=== PATIENT | female | born 1970 ===

== ENCOUNTER 2017-02-07 18:50 | Emergency (ER) | payer MEDICAID ==
--- NOTE | 2017-02-07 19:09 | C.PDOC ---
History Of Present Illness The patient presents to the ED for evaluation of right leg and knee pain which began around 5-6 days ago. Patient reports her pain is exacerbated by movement. She is able to speak in complete sentences and denies fever, chills, shortness of breath, recent prolonged trips or trauma. Time Seen by Provider: 02/07/17 19:09 Chief Complaint (Nursing): Medical Clearance History Per: Patient History/Exam Limitations: no limitations Onset/Duration Of Symptoms: Days (5-6) Current Symptoms Are (Timing): Still Present Severity: Mild Pain Scale Rating Of: 3 Recent travel outside of the [place]: No Additional History Per: Patient Past Medical History Reviewed: Historical Data, Nursing Documentation, Vital Signs Vital Signs: Last Vital Signs Temp 97.5 F L 02/07/17 21:51 Pulse 71 02/07/17 21:51 Resp 20 02/07/17 21:51 BP 126/87 02/07/17 21:51 Pulse Ox 99 02/07/17 21:51 - Medical History PMH: No Chronic Diseases Surgical History: No Surg Hx Family History: States: Unknown Family Hx Review Of Systems Constitutional: Negative for: Fever, Chills Cardiovascular: Negative for: Chest Pain, Palpitations Respiratory: Negative for: Cough, Shortness of Breath Gastrointestinal: Negative for: Nausea, Vomiting, Abdominal Pain, Diarrhea Musculoskeletal: Positive for: Leg Pain (right), Other (right knee pain ) Skin: Negative for: Rash, Lesions, Jaundice, Bruising Neurological: Negative for: Weakness, Numbness Physical Exam - Physical Exam Appears: Non-toxic, No Acute Distress Skin: Warm, Dry Oral Mucosa: Moist Chest: Symmetrical, No Deformity, No Tenderness Cardiovascular: Rhythm Regular, No Murmur Respiratory: No Rales, No Rhonchi, No Wheezing, Other (speaking in complete sentences ) Gastrointestinal/Abdominal: No Soft, No Tenderness, No Distention Back: Normal Inspection Extremity: No Normal ROM (limited, secondary to pain with passive flexion and extension ), Tenderness (to right knee ), Capillary Refill (less than 2 seconds ) Extremity: Right: Painful To Bear Weight, Bilateral: Atraumatic, Normal Color And Temperature Pulses: Left Dorsalis Pedis: Normal, Right Dorsalis Pedis: Normal Neurological/Psych: Oriented x3, Normal Speech, Normal Cognition Gait: Steady ED Course And Treatment - Laboratory Results Result Diagrams: 02/07/17 19:44 02/07/17 19:44 O2 Sat by Pulse Oximetry: 99 (on RA) Pulse Ox Interpretation: Normal - CT Scan/US CT right knee Other Rad Studies (CT/US): Read By Radiologist, Radiology Report Reviewed CT/US Interpretation: EXAM: CT Right Lower Extremity Without Intravenous Contrast, Knee. CLINICAL HISTORY: 46 years old, female; Pain and signs and symptoms; Swelling or effusion of joint; Knee; Right;. Additional info: Knee pain, swelling. TECHNIQUE: Axial computed tomography images of the right knee without intravenous contrast. All CT scans at. this facility use one or more dose reduction techniques, viz.: automated exposure control; ma/kV. adjustment per patient size (including targeted exams where dose is matched to indication; i.e. head);. or iterative reconstruction technique. Coronal and sagittal reformatted images were created and reviewed. COMPARISON: No relevant prior studies available. FINDINGS: Bones/joints: No acute fracture. No definite cortical destruction. Early osteoarthrosis of medial and. patellofemoral compartments. No dislocation. Small joint effusion. Tiny intraarticular body. Soft tissues: Mild stranding within anterior subcutaneous tissues. IMPRESSION: 1. No fracture. 2. Small joint effusion, nonspecific. Clinical correlation is needed. 3. Incidental/non-acute findings are described above. Progress Note: Bloodwork, UA, CT Right Knee ordered. Lovenox SC administered. Reevaluation Time: 21:59 Reassessment Condition: Improved Disposition Counseled Patient/Family Regarding: Studies Performed, Diagnosis, Need For Followup, Rx Given - Disposition Referrals: Nanette Wilson MD [Staff Provider] - Disposition: HOME/ ROUTINE Disposition Time: 19:09 Condition: FAIR Prescriptions: Naproxen [Naprosyn] 1 tab PO BID PRN #25 tab PRN Reason: Pain Instructions: Swollen Knee Joint (ED), Knee Pain (ED) Forms: [employer] (French) - Clinical Impression Clinical Impression: Knee pain, right, Knee effusion, right - Scribe Statement The provider has reviewed the documentation as recorded by the Scribe (Alma Wilson) Provider Attestation: All medical record entries made by the Scribe were at my direction and personally dictated by me. I have reviewed the chart and agree that the record accurately reflects my personal performance of the history, physical exam, medical decision making, and the department course for this patient. I have also personally directed, reviewed, and agree with the discharge instructions and disposition.
[2017-02-07 19:10] VITALS: O2SAT 99
[2017-02-07] MEDS ORDERED: Enoxaparin 40 mg Syringe SC STA (19:24)
[2017-02-07] MEDS ORDERED: Enoxaparin 100 mg Syringe SC STA (19:43)
[2017-02-07 19:55] LABS: BASO # 0.2 K/uL (0.0-0.2); BASO % 1.8 % (0.0-2.0); EOS # 0.1 K/uL (0.0-0.7); EOS % 1.3 % (0.0-4.0); LYMPH # 2.8 K/uL (1.0-4.3); LYMPH % 30.9 % (20.0-40.0); MEAN CELL VOLUME 79.5 fL (81.0-99.0); MEAN CORPUSCULAR HEMOGLOBIN 25.6 pg (27.0-31.0); MEAN CORPUSCULAR HGB CONC 32.2 g/dL (33.0-37.0); MONO # 0.5 K/uL (0.0-0.8); MONO % 5.1 % (0.0-10.0); NRBC % 0.1 % (0.0-2.0); RED CELL DISTRIBUTION WIDTH 15.9 % (11.5-14.5); WHITE BLOOD COUNT 9.2 K/uL (4.8-10.8)
[2017-02-07] MEDS ORDERED: Enoxaparin 100 mg Syringe ONE (19:58)
[2017-02-07 20:00] LABS: VENOUS BLOOD GAS BASE EXCESS 0.8 mmol/L (0.0-2.0); VENOUS BLOOD GAS PCO2 46 mmHg (40-60); VENOUS BLOOD PH 7.37 (7.32-7.43)
[2017-02-07 20:06] LABS: INR 1.1; PARTIAL THROMBOPLASTIN TIME 30 SECONDS (21-34)
[2017-02-07 20:10] LABS: ALB/GLOB RATIO 1.3 (1.0-2.1); ALKALINE PHOSPHATASE 91 U/L (38-126); ALT/SGPT 53 U/L (9-52); AST/SGOT 35 U/L (14-36); BILIRUBIN,TOTAL 0.5 mg/dL (0.2-1.3); BLOOD UREA NITROGEN 11 mg/dL (7-17); CALCIUM 8.9 mg/dl (8.6-10.4); CARBON DIOXIDE 29 mmol/L (22-30); CHLORIDE 102 mmol/L (98-107); GFR AFRICAN-AMERICAN > 60; GLUCOSE,RANDOM 94 mg/dL (65-105); POTASSIUM 3.8 mmol/L (3.6-5.2); SODIUM 141 mmol/L (132-148); TOTAL PROTEIN 7.7 g/dL (6.3-8.3)
[2017-02-07 20:16] LABS: RBC URINE 1 /hpf (0-3); URINE BACTERIA RARE (<OCC); URINE BILIRUBIN NEGATIVE (NEGATIVE); URINE BLOOD NEGATIVE (NEGATIVE); URINE COLOR Colorless (YELLOW); URINE GLUCOSE (UA) NORMAL (Normal); URINE KETONE NEGATIVE (NEGATIVE); URINE PROTEIN NEGATIVE (NEGATIVE); URINE UROBILINOGEN NORMAL mg/dL (0.2-1.0); WBC URINE 14 /hpf (0-5)
[2017-02-07 20:20] LABS: URINE LEUKOCYTE ESTERASE 1+ Leu/uL (Negative)
--- NOTE | 2017-02-07 21:02 | CT ---
EXAM: CT Right Lower Extremity Without Intravenous Contrast, Knee CLINICAL HISTORY: 46 years old, female; Pain and signs and symptoms; Swelling or effusion of joint; Knee; Right; Additional info: Knee pain, swelling TECHNIQUE: Axial computed tomography images of the right knee without intravenous contrast. All CT scans at this facility use one or more dose reduction techniques, viz.: automated exposure control; ma/kV adjustment per patient size (including targeted exams where dose is matched to indication; i.e. head); or iterative reconstruction technique. Coronal and sagittal reformatted images were created and reviewed. COMPARISON: No relevant prior studies available. FINDINGS: Bones/joints: No acute fracture. No definite cortical destruction. Early osteoarthrosis of medial and patellofemoral compartments. No dislocation. Small joint effusion. Tiny intraarticular body. Soft tissues: Mild stranding within anterior subcutaneous tissues. IMPRESSION: 1. No fracture. 2. Small joint effusion, nonspecific. Clinical correlation is needed. 3. Incidental/non-acute findings are described above.
[2017-02-07 21:51] VITALS: BP 126/87; PULSE 71; RESP 20; TEMP 97.5
== END 2017-02-07 22:12 | disposition home or self-care (01) ==
LOC: C.ER 18:50
DX: M25.461 Effusion, right knee (principal); M25.561 Pain in right knee
CPT/HCPCS: 73700; 80053; 81001; 82803; 84703; 85025; 85378; 85610; 85730; 96372; 99283; J1650

== ENCOUNTER 2017-02-08 13:27 | Emergency (ER) | payer MEDICAID ==
[2017-02-08 13:39] VITALS: BP 112/80; PULSE 70; RESP 20; TEMP 98; O2SAT 99
--- NOTE | 2017-02-08 13:52 | C.PDOC ---
History Of Present Illness 46 year old female with Hx of thyroid disease is sent to the ED by Dr. Trenton Wilson for evaluation of pain and swelling to right leg and knee for the past 5- 6 days. Patient was seen in the ED yesterday, she got a CT scan of her right knee that showed arthritic changes, osteoporosis and mild effusion patient was advised to come back to the ED today for a US. Patient is c/o pain to left knee pain as well. Patient denies any Hx of clothing disorders, weakness, numbness, injury, trauma, or fall. Time Seen by Provider: 02/08/17 13:34 Chief Complaint (Nursing): Lower Extremity Problem/Injury History Per: Patient History/Exam Limitations: no limitations Onset/Duration Of Symptoms: Days Current Symptoms Are (Timing): Still Present Recent travel outside of the [place]: No Additional History Per: Patient Past Medical History Reviewed: Historical Data, Nursing Documentation, Vital Signs Vital Signs: Last Vital Signs Temp 98 F 02/08/17 13:37 Pulse 70 02/08/17 13:37 Resp 20 02/08/17 13:37 BP 112/80 02/08/17 13:37 Pulse Ox 99 02/08/17 13:55 - Medical History PMH: Hypothyroidism Surgical History: No Surg Hx Family History: States: Unknown Family Hx - Social History Hx Alcohol Use: No Hx Substance Use: No - Immunization History Hx Tetanus Toxoid Vaccination: Yes Hx Influenza Vaccination: Yes Hx Pneumococcal Vaccination: No Review Of Systems Constitutional: Negative for: Fever, Chills Cardiovascular: Negative for: Chest Pain Respiratory: Negative for: Cough, Shortness of Breath Gastrointestinal: Negative for: Nausea, Vomiting, Abdominal Pain Genitourinary: Negative for: Dysuria, Hematuria Musculoskeletal: Positive for: Leg Pain (Right and left knees) Skin: Negative for: Rash Neurological: Negative for: Weakness, Numbness Physical Exam - Physical Exam Appears: Non-toxic, No Acute Distress Skin: Normal Color, Warm, Dry Head: Atraumatic, Normacephalic Nose: No Discharge Oral Mucosa: Moist Neck: Normal ROM, Supple Chest: Symmetrical Cardiovascular: Rhythm Regular, No Murmur Respiratory: Normal Breath Sounds, No Rales, No Rhonchi, No Wheezing Gastrointestinal/Abdominal: Soft, No Tenderness Extremity: Normal ROM, No Calf Tenderness, No Deformity, Swelling (Right leg > left leg), No Other (No color change ) Pulses: Left Dorsalis Pedis: Normal, Right Dorsalis Pedis: Normal Neurological/Psych: Oriented x3, Normal Speech, Normal Cognition, Normal Motor, Normal Sensation Gait: Steady ED Course And Treatment O2 Sat by Pulse Oximetry: 99 (On RA) Pulse Ox Interpretation: Normal - CT Scan/US CT scan left knee Other Rad Studies (CT/US): Read By Radiologist, Radiology Report Reviewed CT/US Interpretation: Accession No. : [id number]. Patient Name / ID : BERRY BABIN / [id number]. Exam Date : 02/08/2017 14:02:18 ( Approved ). Study Comment : Sex / Age : F / 46Y. Creator : Laura Singh. Dictator : Vishnu Naranjo MD. Senior Financial Reporting Analyst : Organizational Psychologist : Vishnu Naranjo MD. Approver2 : Report Date : 02/08/2017 14:08:07. My Comment : . PROCEDURE: CT left knee. HISTORY: knee pain. COMPARISON: Not available. TECHNIQUE: Computed tomography of the left knee was performed without intravenous contrast administration. Contiguous 2.5 mm axial sections were acquired through the knee. Sagittal and coronal images were reformatted from the axial scan. FINDINGS: There is no evidence fracture. There is narrowing of the medial joint compartment. The lateral and patellofemoral compartments are preserved. There are osteophytes arising from the upper and lower pole of the patella indicative of early osteoarthritis of the patellofemoral articulation. There are no articular erosions. There is no joint effusion. There is no lytic or blastic osseous lesion. There is no soft tissue abnormality appreciated. IMPRESSION: Medial and patellofemoral osteoarthritis. No acute fracture. Venous doppler right leg Other Rad Studies (CT/US): Read By Radiologist, Radiology Report Reviewed CT/US Interpretation: Accession No. : [id number]. Patient Name / ID : BERRY BABIN / [id number]. Exam Date : 02/08/2017 14:16:30 ( Approved ). Study Comment : Sex / Age : F / 46Y. Creator : Angelo Amato. Dictator : Angelo Amato. Senior Financial Reporting Analyst : Organizational Psychologist : Maurice Dee MD. Approver2 : Report Date : 02/08/2017 14:33:24. My Comment : . PROCEDURE: Right Lower Extremity Venous Duplex Exam. HISTORY: right leg pain. PRIORS: None. TECHNIQUE: Right common femoral, femoral, popliteal and posterior tibial, peroneal and great saphenous veins were evaluated. Flow was assessed with color Doppler, compressibility, assessment of phasic flow and augmentation response. Report prepared by Angelo Amato, BS, RVT. FINDINGS: RIGHT : 1. Common Femoral Vein: 1.1. Compressibility - Fully compressible: Thrombus - None: Flow - Phasic: Augmentation -Normal: Reflux - None. 2. Femoral Vein: 2.1. Compressibility - Fully compressible: Thrombus - None: Flow - Phasic: Augmentation -Normal: Reflux - None. 3. Popliteal Vein: 3.1. Compressibility - Fully compressible: Thrombus - None: Flow - Phasic: Augmentation -Normal: Reflux - None. 4. Posterior Tibial Vein: 4.1. Compressibility - Fully compressible: Thrombus - None: Flow - Phasic: Augmentation -Normal: Reflux - None. 5. Peroneal Vein: 5.1. Compressibility - Fully compressible: Thrombus - None: Flow - Phasic: Augmentation -Normal: Reflux - None. 6. Great Saphenous Vein: 6.1. Compressibility - Fully compressible: Thrombus -None: Flow - Phasic : Augmentation - Normal: Reflux - None. OTHER FINDINGS: IMPRESSION: No evidence of deep or superficial vein thrombosis of the right lower extremity with excellent venous flow. Normal valve function noted of the right side. Normal venous flow noted in the left common femoral vein. Reevaluation Time: 14:55 Reassessment Condition: Improved Medical Decision Making Medical Decision Making: Plan: * CT ext lower ordered * Venous duplex scan ordered Disposition Counseled Patient/Family Regarding: Studies Performed, Diagnosis, Need For Followup - Disposition Referrals: Nanette Wilson MD [Staff Provider] - Disposition: HOME/ ROUTINE Disposition Time: 14:56 Condition: STABLE Instructions: Knee Pain (ED) Forms: [employer] (Cambodian) - Clinical Impression Clinical Impression: Knee pain, bilateral - Scribe Statement The provider has reviewed the documentation as recorded by the Scribe Arnold Olmstead All medical record entries made by the Scribe were at my direction and personally dictated by me. I have reviewed the chart and agree that the record accurately reflects my personal performance of the history, physical exam, medical decision making, and the department course for this patient. I have also personally directed, reviewed, and agree with the discharge instructions and disposition.
--- NOTE | 2017-02-08 14:24 | CT ---
PROCEDURE: CT left knee HISTORY: knee pain COMPARISON: Not available TECHNIQUE: Computed tomography of the left knee was performed without intravenous contrast administration. Contiguous 2.5 mm axial sections were acquired through the knee. Sagittal and coronal images were reformatted from the axial scan. FINDINGS: There is no evidence fracture. There is narrowing of the medial joint compartment. The lateral and patellofemoral compartments are preserved. There are osteophytes arising from the upper and lower pole of the patella indicative of early osteoarthritis of the patellofemoral articulation. There are no articular erosions. There is no joint effusion. There is no lytic or blastic osseous lesion. There is no soft tissue abnormality appreciated. IMPRESSION: Medial and patellofemoral osteoarthritis. No acute fracture.
--- NOTE | 2017-02-08 14:45 | VASCLAB ---
PROCEDURE: Right Lower Extremity Venous Duplex Exam. HISTORY: right leg pain PRIORS: None. TECHNIQUE: Right common femoral, femoral, popliteal and posterior tibial, peroneal and great saphenous veins were evaluated. Flow was assessed with color Doppler, compressibility, assessment of phasic flow and augmentation response. Report prepared by CODI Ardon, RVT FINDINGS: RIGHT: 1. Common Femoral Vein: 1.1. Compressibility - Fully compressible: Thrombus - None: Flow - Phasic: Augmentation -Normal: Reflux - None. 2. Femoral Vein: 2.1. Compressibility - Fully compressible: Thrombus - None: Flow - Phasic: Augmentation -Normal: Reflux - None. 3. Popliteal Vein: 3.1. Compressibility - Fully compressible: Thrombus - None: Flow - Phasic: Augmentation -Normal: Reflux - None. 4. Posterior Tibial Vein: 4.1. Compressibility - Fully compressible: Thrombus - None: Flow - Phasic: Augmentation -Normal: Reflux - None. 5. Peroneal Vein: 5.1. Compressibility - Fully compressible: Thrombus - None: Flow - Phasic: Augmentation -Normal: Reflux - None. 6. Great Saphenous Vein: 6.1. Compressibility - Fully compressible: Thrombus -None: Flow - Phasic: Augmentation - Normal: Reflux - None. OTHER FINDINGS: IMPRESSION: No evidence of deep or superficial vein thrombosis of the right lower extremity with excellent venous flow. Normal valve function noted of the right side. Normal venous flow noted in the left common femoral vein.
== END 2017-02-08 15:00 | disposition home or self-care (01) ==
LOC: C.ER 13:27
DX: M25.562 Pain in left knee (principal); M25.561 Pain in right knee

== ENCOUNTER 2018-04-13 09:14 | Emergency (ER) | payer MEDICAID ==
[2018-04-13 09:20] VITALS: BMI 31.3
--- NOTE | 2018-04-13 09:27 | C.PDOC ---
History Of Present Illness 47 year old female with PMHx of Hypothyroidism and Arthritis presents with complaints of viral-like symptoms including: Chills, subjective fever, body aches (most prominent in the knees), and lethargy that began around 1AM this morning. She denies any headache, chest pain, SOB, palpitations, abdominal pain, changes in bowel habits, sick contacts, or urinary symptoms. Patient was already in the hospital staying with her Mother in law when she started to experience her symptoms. He pain is most prominent in her b/l. She has chronic knee pain but states it is exacerbated today. ROS: As stated above PMHx: Hypothyroidism, Arthritis (B/L Knee) PSHx: Denies Allergies: NKDA SocialHx: Denies tobacco EtoH and illicit drug use Hos: Denies FamHx: Brother - Diabetes Meds: Levothyroxine 112mcg daily Time Seen by Provider: 04/13/18 09:27 Chief Complaint (Nursing): Flu-like Symptoms History Per: Patient, Family () Past Medical History Vital Signs: Last Vital Signs Temp 99.7 F H 04/13/18 09:20 Pulse 102 H 04/13/18 09:20 Resp 18 04/13/18 09:20 BP 134/80 04/13/18 09:20 Pulse Ox 100 04/13/18 09:20 - Medical History PMH: Hypothyroidism Family History: States: Diabetes, Hypertension - Social History Hx Alcohol Use: No Hx Substance Use: No - Immunization History Hx Tetanus Toxoid Vaccination: Yes Hx Influenza Vaccination: Yes Hx Pneumococcal Vaccination: No Review Of Systems Except As Marked, All Systems Reviewed And Found Negative. (As per HPI) Physical Exam - Physical Exam Appears: Non-toxic, No Acute Distress Skin: Normal Color, Warm, Dry Head: Atraumatic, Normacephalic Eye(s): bilateral: Normal Inspection Nose: Normal Oral Mucosa: Moist Tongue: Normal Appearing Lips: Normal Appearing Teeth: Normal Dentition Gingiva: Normal Appearing Throat: Normal Neck: Normal, Trachea Midline Lymphatic: Adenopathy (Right Anterior Cervical (Tender)) Cardiovascular: Rhythm Regular, No Edema, No JVD Respiratory: Decreased Breath Sounds, No Accessory Muscle Use, No Rales, No Rhonchi Gastrointestinal/Abdominal: Normal Exam, Soft, Tenderness (RUQ), No Mass, No Distention, No Guarding, No Rebound, Other (Negative Rosen's SIgn. ) Extremity: Tenderness (Anterior Knee N/L Tender to light palpation. Full ROM of Knee B/L. ), No Pedal Edema Neurological/Psych: Oriented x3, Normal Speech ED Course And Treatment O2 Sat by Pulse Oximetry: 100 Medical Decision Making Medical Decision Making: Flu-Like Symptoms Ibuprofen 600 ONCE Tylenol 975 ONCE Reassess Dispo: Patient overall feels better. She still complains of body aches especi ally in the knees. She is afebrile with stable Vital Signs. We will discharge patient with tamiflu, tylenol and advil. Disposition - Disposition Referrals: Radha Wells MD [Staff Provider] - Disposition: HOME/ ROUTINE Disposition Time: 12:49 Condition: FAIR Prescriptions: Acetaminophen [Tylenol 325mg tab] 650 mg PO Q6H PRN #14 PRN Reason: Fever >100.4 F Ibuprofen [Motrin Tab] 600 mg PO Q6H #14 tab Instructions: Viral Syndrome (DC), Flu, Adult (DC) Forms: [facility] [employer] (Hungarian) - Clinical Impression Clinical Impression: Influenza-like illness
[2018-04-13 13:13] VITALS: BP 103/74; PULSE 80; RESP 18; TEMP 98.1; O2SAT 99
== END 2018-04-13 13:13 | disposition home or self-care (01) ==
LOC: C.ER 09:14
DX: J11.1 Influenza due to unidentified influenza virus with other respiratory manifestations (principal); E03.9 Hypothyroidism, unspecified; M19.90 Unspecified osteoarthritis, unspecified site